=== PATIENT | female | born 1940 ===

== ENCOUNTER 2025-04-16 22:18 | Outpatient (REF) | payer MEDICARE, SELFPAY | END 2025-04-16 22:19 | disposition home or self-care (01) | LOC: LBN 22:18 | PROVIDERS: Visit Provider Nurse Practitioner Family | DX: S81.801A Unspecified open wound, right lower leg, initial encounter (principal); L08.9 Local infection of the skin and subcutaneous tissue, unspecified | CPT/HCPCS: 87077; 87070; 87186; 87205 ==